=== PATIENT | female | born 1965 | race American Indian/Alaskan Native ===

== ENCOUNTER 2017-04-02 05:21 | Inpatient (IN) | payer OTHER ==
[2017-04-02] MEDS ORDERED: NACL 0.9% 1000 ML 1,000 ML IV ONE (05:25)
[2017-04-02 05:52] LABS: Basophils % (Auto) 0.7 % (0.0-1.8); Eosinophils % (Auto) 1.5 % (0.0-4.3); Mean Corpuscular HGB Conc 30 % (30-34); Platelet Count 444 K/mm3 (140-440); Red Blood Count 2.53 M/mm3 (3.65-5.03)
[2017-04-02] MEDS ORDERED: TORADOL IV ONE (05:52)
[2017-04-02 05:59] LABS: Mean Corpuscular Hemoglobin 20 pg (28-32); Mean Corpuscular Volume 66 fl (79-97); Red Cell Distribution Width 21.7 % (13.2-15.2)
[2017-04-02 06:00] LABS: Hematocrit 16.7 % (30.3-42.9)
[2017-04-02] MEDS ORDERED: NACL 0.9% 500 ML 500 ML IV ONE ×2 (06:01→23:57)
[2017-04-02 06:06] LABS: INR 1.08 (0.87-1.13)
[2017-04-02 06:07] LABS: Partial Thromboplastin Time 23.3 Sec. (24.2-36.6)
[2017-04-02 06:15] LABS: Albumin 3.2 g/dL (3.9-5); Albumin/Globulin Ratio 1.2 %; Alkaline Phosphatase 61 units/L (35-129); Anion Gap 22 mmol/L; Blood Urea Nitrogen 8 mg/dL (7-17); Carbon Dioxide 17 mmol/L (22-30); Chloride 105.3 mmol/L (98-107); Glucose 154 mg/dL (65-100); Sodium 141 mmol/L (137-145); Total Protein 5.9 g/dL (6.3-8.2)
[2017-04-02 06:16] LABS: Alanine Aminotransferase < 5 units/L (7-56)
[2017-04-02] MEDS ORDERED: K-DUR PO ONE (06:28)
--- NOTE | 2017-04-02 06:32 | Emergency Department Report ---
HPI - General Chief Complaint: Vaginal Bleeding Time Seen by Provider: 04/02/17 05:50 - HPI HPI: This is a 51-year-old female presents to the emergency department via EMS with complaint of heavy vaginal bleeding and what appears to be symptomatic anemia. The patient says that she feels very weak. She got into the car with her family to come to the hospital and appeared to pass out. She is currently awake and alert and denies any chest pain, shortness of breath , headache, vision change, slurred speech or any neurological deficits. She has a history of some abnormal menstrual cycles but more recently it has been very heavy bleeding and she has been passing some clots. She says this been going on intermittent for the past 10 days. She has not taken anything for her symptoms prior to presentation. She just went to see a STEAM ENGINEER for the very first time a week or so ago but no treatment or intervention has been started. No recent travel or sick contacts at home. ED Past Medical Hx - Past Medical History Previous Medical History?: No - Surgical History Past Surgical History?: No - Social History Smoking Status: Former Smoker Substance Use Type: None - Medications Home Medications: Home Medications Medication Instructions Recorded Confirmed Last Taken Type Provera PO DAILY 04/02/17 Unknown History ED Review of Systems ROS: Stated complaint: SYNCOPE Other details as noted in HPI Comment: All other systems reviewed and negative Constitutional: denies: chills, fever Eyes: denies: eye pain, eye discharge, vision change ENT: denies: ear pain, throat pain Respiratory: denies: cough, shortness of breath, wheezing Cardiovascular: syncope. denies: chest pain Gastrointestinal: denies: abdominal pain, nausea, diarrhea Genitourinary: other (vaginal bleeding). denies: urgency, dysuria, discharge Musculoskeletal: denies: back pain, joint swelling, arthralgia Skin: denies: rash, lesions Neurological: denies: headache, weakness, paresthesias Physical Exam - Physical Exam Vital Signs: Vital Signs 04/02/17 04/02/17 05:23 05:57 Temperature 98.6 F Pulse Rate 112 H Respiratory 21 19 Rate Blood Pressure 129/77 O2 Sat by Pulse 100 Oximetry Physical Exam: GENERAL: The patient is well-developed well-nourished. Patient appears slightly shaky. HENT: Normocephalic. Atraumatic. Patient has moist mucous membranes. EYES: Extraocular motions are intact. Pupils equal reactive to light bilaterally. Pale conjunctiva. NECK: Supple. Trachea is midline. CHEST/LUNGS: Clear to auscultation. There is no respiratory distress noted. HEART/CARDIOVASCULAR: Regular. There is mild tachycardia. There is no gallop rub or murmur. ABDOMEN: Abdomen is soft, nontender. Patient has normal bowel sounds. There is no abdominal distention. SKIN: There is no rash. There is no edema. There is no diaphoresis. NEURO: The patient is awake, alert, and oriented. The patient is cooperative. The patient has no focal neurologic deficits. The patient has normal speech. Cranial nerves II through XII grossly intact. MUSCULOSKELETAL: There is no tenderness or deformity. There is no limitation range of motion. There is no evidence of acute injury. Radial pulses +2 over 4 bilaterally. Cap refill less than 2 seconds. ED Course Vital Signs 04/02/17 04/02/17 05:23 05:57 Temperature 98.6 F Pulse Rate 112 H Respiratory 21 19 Rate Blood Pressure 129/77 O2 Sat by Pulse 100 Oximetry ED Medical Decision Making - Lab Data Result diagrams: 04/02/17 05:27 04/02/17 05:27 - EKG Data -: EKG Interpreted by Ct EKG shows normal: sinus rhythm, axis, intervals, QRS complexes, ST-T waves Rate: tachycardia (111 bpm) - EKG Data When compared to previous EKG there are: previous EKG unavailable Interpretation: normal EKG (with sinus tach) - Medical Decision Making 51-year-old female presents to the ER with a history of dysfunctional uterine bleeding and some fibroids with a 10 day history of intermittent heavy bleeding with clots. She passed out when she was getting into the car to come to be seen so she came by ambulance. Found to have a hemoglobin of 5 and hypokalemia. Given IV potassium chloride as she felt oral pills would make her sick. 3 units ordered for transfusion. Due to the symptomatic anemia and syncopal episode, patient will be admitted to the hospitalist service with an OB /OPERATIONS LIAISON consult. - Differential Diagnosis symptomatic anemia, fibroids, malignancy Critical Care Time: No Critical care attestation.: If time is entered above; I have spent that time in minutes in the direct care of this critically ill patient, excluding procedure time. ED Disposition Clinical Impression: Symptomatic anemia, Hypokalemia, Menorrhagia with irregular cycle Syncope Qualifiers: Syncope type: unspecified Qualified Code(s): R55 - Syncope and collapse Disposition: OP ADMIT IP TO THIS HOSP Is pt being admited?: Yes Does the pt Need Aspirin: No Condition: Stable Instructions: Syncope (ED) Referrals: PRIMARY CARE, [Primary Care Provider] - 3-5 Days Time of Disposition: 07:34
--- NOTE | 2017-04-02 07:22 | Admit Criteria Form ---
Admission Criteria Documentation: OBSTETRIC AND GYNECOLOGIC DISEASE GRG Clinical Indications for Admission to Inpatient Care (Place 'X' for any and all applicable criteria): Hospital admission is needed for appropriate care of the patient because of 1 or more of the following (1)(2)(3): [ ]I. Hemodynamic instability, as indicated by 1 or more of the following (1)( 2)(3)(4)(5): [ ]a) Vital signs or other findings not as expected for chronic patient condition or baseline [ ]b) Instability indicated by 1 or more of the following: [ ]i) Hypotension [ ]ii) Symptomatic tachycardia unresponsive to treatment (eg, analgesia, fluids, sedation as indicated) [ ]iii) Inadequate perfusion indicated by 1 or more of the following: [ ]A. Lactic acidosis (greater than 2 mmol/ L) [ ]B. New abnormal capillary refill ( greater than 3 seconds) [ ]C. Reduced urine output [ ]D. New altered mental status [ ]iv) Orthostatic vital sign changes unresponsive to treatment (eg, fluids) [ ]v) Multiple IV fluid boluses required to maintain adequate blood pressure or perfusion [ ]vi) IV inotropic or vasopressor medication required to maintain adequate blood pressure or perfusion [ ]II. Obstetric infection requiring hospitalization indicated by 1 or more of the following(13)(14): [ ]a) Chorioamnionitis [ ]b) Endometritis (except mild endometritis) [ ]c) Pelvic abscess [ ]d) Peritonitis [ ]e) Septic pelvic thrombophlebitis [ ]III. Amniotic fluid or pulmonary embolism(4)(5)(6) [ ]IV. Suspected peritonitis or ectopic requiring monitoring beyond scope of 24 hours or observation care(7)(8) [ ]V. compromise requiring hospitalization indicated by ALL of the following(9)(10): [ ]a) compromise indicated by 1 or more of the following(11): [ ]i) Abnormal heart rate monitoring [ ]ii) Abnormal contraction stress test [ ]iii) Abnormal biophysical profile [ ]iv) Abnormal Doppler flow in vessels (ie, Doppler velocimetry) (12) [ ]b) Persistence of compromise indicators during evaluation and observation monitoring [ ]. Ovarian hyperstimulation syndrome requiring hospitalization[A] indicated by ALL of the following(15): [ ]a) Recent ovarian stimulation with gonadotropins, or evidence on ultrasound of spontaneous emergence of large number of ovarian follicles [ ]b) Evidence of severe ovarian hyperstimulation syndrome indicated by 1 or more of the following: [ ]i) Abdominal pain unresponsive to oral therapy [ ]ii) Acute respiratory distress syndrome [ ]iii) Electrolyte imbalance ( eg, hyponatremia, hyperkalemia) [ ]iv) Elevated liver enzymes [ ]v) Evidence of thromboembolism [ ]vi) Hemoconcentration (hematocrit greater than 45 % (0.45)) [ ]vii) Inability to maintain oral intake adequate to prevent hemoconcentration [ ]viii) Marked hypotension from baseline (eg, SBP 20 mmHg below patients usual pressure) [ ]ix) Oliguria or anuria [ ]x) Ovarian torsion [ ]xi) Pleural or pericardial effusion on x-ray or echocardiogram [ ]xii) Rapid increase in serum creatinine to greater than 1.2 mg/dL (106 micromoles/L) or creatinine clearance less than 50 mL/min/1.73m2 (0.84 mL/ sec/1.73m2) [ ]xiii) Ruptured ovarian cyst with hemorrhage [ ]xiv) Severe abdominal pain or peritoneal signs [ ]xv) Tense ascites that cannot be managed with paracentesis in outpatient setting [ ]VII.Pelvic infection requiring hospitalization indicated by 1 or more of the following (16): [ ]a) Outpatient treatment has failed or is not appropriate (eg, inpatient monitoring required) [ ]b) Pelvic abscess [ ]c) Surgical emergency cannot be excluded (eg, rigid abdomen) [ ]d) Vomiting precluding outpatient and observation care management VIII. loss complications requiring inpatient medical treatment indicated by 1 or more of the following (4)(7)(9): [ ]a) Fever [ ]b) Peritonitis [ ]c) Sepsis [ ]d) Severe abdominal pain [ ]IX. or patient requiring monitoring for severe heart failure, pulmonary disease, or other comorbid condition (eg, peripartum cardiomyopathy) (4)(17) [ ]X. patient with rupture of membranes requiring hospitalization indicated by ANY ONE of the following: [ ]a) Chorioamnionitis, cloudy amniotic fluid, or other evidence of infection [ ]b) compromise or other need for monitoring (11) [ ]c) Gestation longer than 23 weeks and ANY ONE of the following: [ ]i) Abnormal (noncephalic) presentation [ ]ii) Inadequate home environment (eg, home too far from hospital, unable to rapidly return to hospital) [ ]d) Temperature greater than 100.4 degrees F (38 degrees C)( oral) [ ]e) Threatened labor requiring monitoring beyond scope (eg, over 24 hours) of observation Care [ ] XI. complications, including severe lacerations, infections, or retained placenta (19) [X ] XII.Uterine bleeding with high-risk features indicated by ANY ONE of the following (4): [ ]a) Active major hemorrhage (eg, hemorrhage) [ ]b) Coagulopathy with active bleeding [ ]c) Gestational trophoblastic disease (eg, molar ) (20 ) [ ]d) (longer than 23 weeks) and ANY ONE of the following: [ ]i) Pain [ ]ii) Placental abruption, known or suspected [ ]iii) Placenta accrete, known or suspected(21) [ ]iv) Placenta previa, known or suspected [ ]v) Vasa previa [X ]e) Severe anemia [ ]XIII. Obstetric or Gynecologic Disease, condition or symptom for which ANY ONE of the following: [ ]a) Emergency and observation care have failed or are not considered appropriate ( Also use General Criteria: Observation Care Criteria as appropriate) [ ]b) Presence of a General Admission Criteria or Pediatric General Admission Criteria The original [facility] [employer] content [facility] by [facility] has been revised. The portions of the content which have been revised are identified through the use of italic text or in bold, and [facility] has neither reviewed nor approved the modified material.All other unmodified content is copyright [facility]. Please see references footnoted in the original [facility] edition 2016 Admission Criteria Met: Yes
--- NOTE | 2017-04-02 07:22 | XRay Report ---
AP CHEST: HISTORY: chest pain AP view of the chest demonstrates a normal mediastinal and cardiac contour with clear lungs and normal bony and soft tissue structures. IMPRESSION: Unremarkable AP chest.
--- NOTE | 2017-04-02 07:47 | History and Physical Report ---
<NEREIDA CLIFFORD - Last Filed: 04/03/17 07:18> History of Present Illness Date of examination: 04/02/17 Date of admission: 04/02/2017 Chief complaint: Vaginal bleeding History of present illness: Patient is 51 years old female with past medical history of fibrosis who presents to the Emergency Department with 17days of worsening heavy vaginal bleed. Just over 17 days ago the patient was at his normal baseline state of health. Now he has had progressive worsening of vaginal bleeding. Patient states has a history of some abnormal menstrual cycles but more recently it has been very heavy bleeding and with passing some big clots. Patient reporters she has been going on intermittent since 03/16/2017. Patient reported feeling fatigue and weak. Also patient stated she got into the car with her family to come to the hospital and felt dizzy and appeared to pass out. He daughter called 911 and EMS brought her to the Emergency department. She denies nausea, vomiting and shortness of breath. He denies fever, wt loss, SOB, dizziness, hematemesis, diarrhea, constipation, or hematochezia. No hx of liver disease. No NSAID use. No ETOH abuse or smoking. Past History Past Medical History: other (Abnormal uterine bleeding) Past Surgical History: No surgical history Social history: no significant social history. denies: smoking, alcohol abuse Family history: hypertension Medications and Allergies Allergies Allergy/AdvReac Type Severity Reaction Status Date / Time No Known Allergies Allergy Unverified 04/02/17 05:23 Home Medications Medication Instructions Recorded Confirmed Last Taken Type Provera 10 mg PO DAILY 04/02/17 04/02/17 Unknown History Active Meds: Active Medications Potassium Chloride (Kcl 10meq/100ml) 10 meq in 100 mls @ 100 mls/hr IV Q1H FRANDY Stop: 04/02/17 11:59 Review of Systems Constitutional: fatigue, weakness, lethargy, no weight loss, no weight gain, no fever Ears, nose, mouth and throat: no ear pain, no ear discharge, no tinnitis, no decreased hearing Breasts: no change in shape, no swelling, no mass Cardiovascular: no orthopnea, no palpitations, no rapid/irregular heart beat, no edema Respiratory: no cough with sputum, no excessive sputum, no hemoptysis, no shortness of breath Gastrointestinal: nausea, no vomiting, no diarrhea, no constipation Genitourinary Female: menorrhagia, abnormal vaginal bleeding, no dysmenorrhea, no pelvic pain, no flank pain, no dysuria Menstruation: no currently menstrual, no premenarcheal, no post hysterectomy, no ammenorrhea Musculoskeletal: no neck stiffness, no neck pain, no arm numbness/tingling, no low back pain Integumentary: no rash, no pruritis, no redness, no sores Neurological: no head injury, no transient paralysis, no paralysis, no weakness Psychiatric: no anxiety, no memory loss, no change in sleep habits, no sleep disturbances, no insomnia, no hypersomnia Endocrine: no cold intolerance, no heat intolerance, no polyphagia, no excessive thirst, no polydipsia Hematologic/Lymphatic: no easy bruising, no easy bleeding Allergic/Immunologic: no urticaria, no allergic rhinitis Exam - Constitutional Vitals: Temp Pulse Resp BP Pulse Ox 98.6 F 110 H 19 124/82 100 04/02/17 05:23 04/02/17 06:29 04/02/17 06:29 04/02/17 06:29 04/02/17 06:29 General appearance: Present: no acute distress - EENT Eyes: Present: PERRL ENT: hearing intact - Neck Neck: Present: supple - Respiratory Respiratory effort: normal Respiratory: bilateral: CTA - Cardiovascular Rhythm: regular Heart Sounds: Present: S1 & S2 - Extremities Extremities: no ischemia Peripheral Pulses: within normal limits - Abdominal General gastrointestinal: Present: soft, non-tender Female genitourinary: Present: other (heavy menstrual bleeding) - Rectal Rectal Exam: deferred - Integumentary Integumentary: Present: clear, warm, dry - Musculoskeletal Musculoskeletal: strength equal bilaterally - Psychiatric Psychiatric: appropriate mood/affect - Neurologic Neurologic: CNII-XII intact - Allied Health Allied health notes reviewed: nursing Results - Labs CBC & Chem 7: 04/03/17 05:28 04/03/17 05:28 Labs: Laboratory Last Values WBC 13.0 K/mm3 (4.5-11.0) H 04/02/17 05:27 RBC 2.53 M/mm3 (3.65-5.03) L 04/02/17 05:27 Hgb 5.0 gm/dl (10.1-14.3) L* 04/02/17 05:27 Hct 16.7 % (30.3-42.9) L* 04/02/17 05:27 MCV 66 fl (79-97) L 04/02/17 05:27 MCH 20 pg (28-32) L 04/02/17 05:27 MCHC 30 % (30-34) 04/02/17 05:27 RDW 21.7 % (13.2-15.2) H 04/02/17 05:27 Plt Count 444 K/mm3 (140-440) H 04/02/17 05:27 Lymph % (Auto) 23.6 % (13.4-35.0) 04/02/17 05:27 [place] % (Auto) 3.7 % (0.0-7.3) 04/02/17 05:27 Eos % (Auto) 1.5 % (0.0-4.3) 04/02/17 05:27 Baso % (Auto) 0.7 % (0.0-1.8) 04/02/17 05:27 Lymph # 3.1 K/mm3 (1.2-5.4) 04/02/17 05:27 [place] # 0.5 K/mm3 (0.0-0.8) 04/02/17 05:27 Eos # 0.2 K/mm3 (0.0-0.4) 04/02/17 05:27 Baso # 0.1 K/mm3 (0.0-0.1) 04/02/17 05:27 Seg Neutrophils % 70.5 % (40.0-70.0) H 04/02/17 05:27 Seg Neutrophils # 9.2 K/mm3 (1.8-7.7) H 04/02/17 05:27 PT 14.6 Sec. (12.2-14.9) 04/02/17 05:27 INR 1.08 (0.87-1.13) 04/02/17 05:27 APTT 23.3 Sec. (24.2-36.6) L 04/02/17 05:27 D-Dimer 285.55 ng/mlDDU (0-234) H 04/02/17 05:27 Sodium 141 mmol/L (137-145) 04/02/17 05:27 Potassium 3.0 mmol/L (3.6-5.0) L 04/02/17 05:27 Chloride 105.3 mmol/L (98-107) 04/02/17 05:27 Carbon Dioxide 17 mmol/L (22-30) L 04/02/17 05:27 Anion Gap 22 mmol/L 04/02/17 05:27 BUN 8 mg/dL (7-17) 04/02/17 05:27 Creatinine 0.5 mg/dL (0.7-1.2) L 04/02/17 05:27 Estimated GFR > 60 ml/min 04/02/17 05:27 BUN/Creatinine Ratio 16.00 % 04/02/17 05:27 Glucose 154 mg/dL (65-100) H 04/02/17 05:27 Calcium 8.0 mg/dL (8.4-10.2) L 04/02/17 05:27 Total Bilirubin 0.20 mg/dL (0.1-1.2) 04/02/17 05:27 AST 9 units/L (5-40) 04/02/17 05:27 ALT < 5 units/L (7-56) L 04/02/17 05:27 Alkaline Phosphatase 61 units/L (35-129) 04/02/17 05:27 Troponin T < 0.010 ng/mL (0.00-0.029) 04/02/17 05:27 Total Protein 5.9 g/dL (6.3-8.2) L 04/02/17 05:27 Albumin 3.2 g/dL (3.9-5) L 04/02/17 05:27 Albumin/Globulin Ratio 1.2 % 04/02/17 05:27 Blood Type O POSITIVE 04/02/17 05:27 Crossmatch See Detail 04/02/17 05:27 - Imaging and Cardiology CT scan - pelvis: image reviewed (Enlarged uterus with a central fibroid along the endometrium and right ovarian cyst.) Assessment and Plan Assessment and plan: Acute Blood loss Anemia Most likely due to menorrhagia Patient has significant drop of H&H , ordered stat transfusion of 3 units of PRBC STAT Type and screen for transfusion Treat underlying cause and restore normal levels of red blood cells, hemoglobin to safe levels. IV Fluid Closely monitor H&H Menorrhagia Most likely due to uterine fibroids Pelvic and transvaginal ultrasound shows enlarged uterus with a central fibroid along the endometrium and right ovarian cyst. OBGYN consulted Closely monitor H&H Fibroid uterus OBGYN consulted for possible hysterectomy Hypokalemia Replaced Closely monitor electrolytes DVT prophylaxis Just SCD for now because of active bleeding. Advance Directives: Yes VTE prophylaxis?: Chemical Contraindication Mechanical VTE Prophylaxis: Treatment Not Indicated Plan of care discussed with patient/family: Yes <LOVE ANDREA Laz - Last Filed: 04/03/17 08:41> History of Present Illness Date of admission: 04/02/17 07:56 Medications and Allergies Active Meds: Active Medications Acetaminophen (Tylenol) 650 mg PO Q4H PRN PRN Reason: Pain MILD(1-3)/Fever >100.5/SHEPPARD Bisacodyl (Dulcolax) 10 mg [place] QDAY PRN PRN Reason: Constipation unrelieved by MOM Sodium Chloride (Nacl 0.9% 1000 Ml) 1,000 mls @ 75 mls/hr IV DIRECT FRANDY Last Admin: 04/02/17 13:37 Dose: 75 mls/hr Ketorolac Tromethamine (Toradol) 30 mg IV Q6H FRANDY Stop: 04/07/17 08:59 Last Admin: 04/03/17 05:52 Dose: Not Given Medroxyprogesterone Acetate (Provera) 10 mg PO QDAY FRANDY Ondansetron HCl (Zofran) 4 mg IM Q4H PRN PRN Reason: Nausea And Vomiting Potassium Chloride (K-Dur) 40 meq PO Q4H FRANDY Stop: 04/03/17 14:01 Exam - Constitutional Vitals: Temp Pulse Resp BP Pulse Ox 98.6 F 90 18 138/74 100 04/03/17 06:00 04/03/17 06:00 04/03/17 06:00 04/03/17 06:00 04/03/17 06:00 Results - Labs CBC & Chem 7: 04/03/17 05:28 04/03/17 05:28 Labs: Laboratory Last Values WBC 8.6 K/mm3 (4.5-11.0) 04/03/17 05:28 RBC 2.84 M/mm3 (3.65-5.03) L 04/03/17 05:28 Hgb 6.6 gm/dl (10.1-14.3) L 04/03/17 05:28 Hct 20.6 % (30.3-42.9) L 04/03/17 05:28 MCV 72 fl (79-97) L 04/03/17 05:28 MCH 23 pg (28-32) L 04/03/17 05:28 MCHC 32 % (30-34) 04/03/17 05:28 RDW 25.5 % (13.2-15.2) H 04/03/17 05:28 Plt Count 333 K/mm3 (140-440) 04/03/17 05:28 Lymph % (Auto) 23.6 % (13.4-35.0) 04/02/17 05:27 [place] % (Auto) 3.7 % (0.0-7.3) 04/02/17 05:27 Eos % (Auto) 1.5 % (0.0-4.3) 04/02/17 05:27 Baso % (Auto) 0.7 % (0.0-1.8) 04/02/17 05:27 Lymph # 3.1 K/mm3 (1.2-5.4) 04/02/17 05:27 [place] # 0.5 K/mm3 (0.0-0.8) 04/02/17 05:27 Eos # 0.2 K/mm3 (0.0-0.4) 04/02/17 05:27 Baso # 0.1 K/mm3 (0.0-0.1) 04/02/17 05:27 Add Manual Diff Complete 04/03/17 05:28 Total Counted 100 04/03/17 05:28 Seg Neutrophils % 70.5 % (40.0-70.0) H 04/02/17 05:27 Seg Neuts % (Manual) 78.0 % (40.0-70.0) H 04/03/17 05:28 Band Neutrophils % 8.0 % 04/03/17 05:28 Lymphocytes % (Manual) 11.0 % (13.4-35.0) L 04/03/17 05:28 Reactive Lymphs % (Man) 0 % 04/03/17 05:28 Monocytes % (Manual) 3.0 % (0.0-7.3) 04/03/17 05:28 Eosinophils % (Manual) 0 % (0.0-4.3) 04/03/17 05:28 Basophils % (Manual) 0 % (0.0-1.8) 04/03/17 05:28 Metamyelocytes % 0 % 04/03/17 05:28 Myelocytes % 0 % 04/03/17 05:28 Promyelocytes % 0 % 04/03/17 05:28 Blast Cells % 0 % 04/03/17 05:28 Nucleated RBC % Not Reportable 04/03/17 05:28 Seg Neutrophils # 9.2 K/mm3 (1.8-7.7) H 04/02/17 05:27 Seg Neutrophils # Man 6.7 K/mm3 (1.8-7.7) 04/03/17 05:28 Band Neutrophils # 0.7 K/mm3 04/03/17 05:28 Lymphocytes # (Manual) 0.9 K/mm3 (1.2-5.4) L 04/03/17 05:28 Abs React Lymphs (Man) 0.0 K/mm3 04/03/17 05:28 Monocytes # (Manual) 0.3 K/mm3 (0.0-0.8) 04/03/17 05:28 Eosinophils # (Manual) 0.0 K/mm3 (0.0-0.4) 04/03/17 05:28 Basophils # (Manual) 0.0 K/mm3 (0.0-0.1) 04/03/17 05:28 Metamyelocytes # 0.0 K/mm3 04/03/17 05:28 Myelocytes # 0.0 K/mm3 04/03/17 05:28 Promyelocytes # 0.0 K/mm3 04/03/17 05:28 Blast Cells # 0.0 K/mm3 04/03/17 05:28 WBC Morphology Not Reportable 04/03/17 05:28 Hypersegmented Neuts Not Reportable 04/03/17 05:28 Hyposegmented Neuts Not Reportable 04/03/17 05:28 Hypogranular Neuts Not Reportable 04/03/17 05:28 Smudge Cells Not Reportable 04/03/17 05:28 Toxic Granulation Not Reportable 04/03/17 05:28 Toxic Vacuolation Not Reportable 04/03/17 05:28 Dohle Bodies Not Reportable 04/03/17 05:28 Pelger-Huet Anomaly Not Reportable 04/03/17 05:28 Milana Rods Not Reportable 04/03/17 05:28 Platelet Estimate Appears normal 04/03/17 05:28 Clumped Platelets Not Reportable 04/03/17 05:28 Plt Clumps, EDTA Not Reportable 04/03/17 05:28 Large Platelets Not Reportable 04/03/17 05:28 Giant Platelets Not Reportable 04/03/17 05:28 Platelet Satelliting Not Reportable 04/03/17 05:28 Plt Morphology Comment Not Reportable 04/03/17 05:28 RBC Morphology Not Reportable 04/03/17 05:28 Dimorphic RBCs Not Reportable 04/03/17 05:28 Polychromasia Not Reportable 04/03/17 05:28 Hypochromasia 1+ 04/03/17 05:28 Poikilocytosis Not Reportable 04/03/17 05:28 Anisocytosis 2+ 04/03/17 05:28 Microcytosis Not Reportable 04/03/17 05:28 Macrocytosis Not Reportable 04/03/17 05:28 Spherocytes Not Reportable 04/03/17 05:28 Pappenheimer Bodies Not Reportable 04/03/17 05:28 Sickle Cells Not Reportable 04/03/17 05:28 Target Cells Not Reportable 04/03/17 05:28 Tear Drop Cells Not Reportable 04/03/17 05:28 Ovalocytes Few 04/03/17 05:28 Helmet Cells Not Reportable 04/03/17 05:28 [place] Bodies Not Reportable 04/03/17 05:28 [place] Rings Not Reportable 04/03/17 05:28 Jaime Cells Not Reportable 04/03/17 05:28 Bite Cells Not Reportable 04/03/17 05:28 Crenated Cell Not Reportable 04/03/17 05:28 Elliptocytes 1+ 04/03/17 05:28 Acanthocytes (Spur) Not Reportable 04/03/17 05:28 Rouleaux Not Reportable 04/03/17 05:28 Hemoglobin C Crystals Not Reportable 04/03/17 05:28 Schistocytes Not Reportable 04/03/17 05:28 Malaria parasites Not Reportable 04/03/17 05:28 Chris Bodies Not Reportable 04/03/17 05:28 Hem Pathologist Commnt No 04/03/17 05:28 PT 14.6 Sec. (12.2-14.9) 04/02/17 05:27 INR 1.08 (0.87-1.13) 04/02/17 05:27 APTT 23.3 Sec. (24.2-36.6) L 04/02/17 05:27 D-Dimer 285.55 ng/mlDDU (0-234) H 04/02/17 05:27 Sodium 142 mmol/L (137-145) 04/03/17 05:28 Potassium 3.4 mmol/L (3.6-5.0) L 04/03/17 05:28 Chloride 110.5 mmol/L (98-107) H 04/03/17 05:28 Carbon Dioxide 18 mmol/L (22-30) L 04/03/17 05:28 Anion Gap 17 mmol/L 04/03/17 05:28 BUN 7 mg/dL (7-17) 04/03/17 05:28 Creatinine 0.4 mg/dL (0.7-1.2) L 04/03/17 05:28 Estimated GFR > 60 ml/min 04/03/17 05:28 BUN/Creatinine Ratio 17.50 % 04/03/17 05:28 Glucose 92 mg/dL (65-100) 04/03/17 05:28 Calcium 7.5 mg/dL (8.4-10.2) L 04/03/17 05:28 Magnesium 1.90 mg/dL (1.7-2.3) 04/03/17 05:28 Total Bilirubin 0.20 mg/dL (0.1-1.2) 04/02/17 05:27 AST 9 units/L (5-40) 04/02/17 05:27 ALT < 5 units/L (7-56) L 04/02/17 05:27 Alkaline Phosphatase 61 units/L (35-129) 04/02/17 05:27 Troponin T < 0.010 ng/mL (0.00-0.029) 04/02/17 09:35 Total Protein 5.9 g/dL (6.3-8.2) L 04/02/17 05:27 Albumin 3.2 g/dL (3.9-5) L 04/02/17 05:27 Albumin/Globulin Ratio 1.2 % 04/02/17 05:27 Blood Type O POSITIVE 04/02/17 05:27 Antibody Screen Negative 04/02/17 05:27 Crossmatch See Detail 04/02/17 05:27 Assessment and Plan Assessment and plan: I saw and evaluated the patient. I agree with the findings and the plan of care as documented in the Nurse Practitioner's~note, with the following corrections and additions. Patient with severe abnormal uterine bleeding due to fibroids. Transfuse PRBC, replace Potassium.
[2017-04-02] MEDS ORDERED: DULCOLAX PR PRN (07:56)
[2017-04-02] MEDS ORDERED: TYLENOL PO PRN (07:56)
[2017-04-02] MEDS ORDERED: NACL 0.9% 1000 ML 1,000 ML IV SCH (08:00)
[2017-04-02] MEDS ORDERED: NACL ONE (08:37)
[2017-04-02] MEDS ORDERED: TORADOL ONE (08:41)
[2017-04-02] MEDS: TORADOL IV SCH ×2 (08:44→19:01)
[2017-04-02] MEDS ORDERED: ZOFRAN IM PRN (08:51)
--- NOTE | 2017-04-02 09:24 | Cat Scan Report ---
CTA CHEST INDICATION: Elevated d-dimer. COMPARISON: None similar. FINDINGS: Chest CTA performed following intravenous administration of 100 cc of Omnipaque 350. Rotational MIP's also obtained. Top normal heart size. No effusions. No aortic aneurysm, dissection or suspicious pulmonary arterial filling defects. No size significant adenopathy. Normal airway. Unremarkable thyroid. Clear lungs. Nonspecific distal esophageal wall prominence/thickening, not excluded for gastroesophageal reflux and/or hiatal hernia, amongst others. Right hemidiaphragm mildly elevated. At least 2 hepatic hypodensities/cysts superiorly measure up to approximately 1 cm. A 0.5 cm faintly calcified gallstone also noted dependently. Multilevel thoracic spondylosis. CONCLUSION: No CT evidence of pulmonary embolism with various incidental findings, as above. Thank you for the opportunity to participate in this patient's care.
[2017-04-02] MEDS ORDERED: LOVENOX SUB-Q SCH (10:00)
--- NOTE | 2017-04-02 11:02 | Consultation ---
History of Present Illness Consult date: 04/02/17 Requesting physician: NEREIDA CLIFFORD Reason for consult: menorrhagia History of present illness: Pt is a 51-year-old female LMP 03/16/17 who presented to the emergency department via EMS with complaints of heavy vaginal bleeding and what appeared to be symptomatic anemia. The patient stated that she was feeling weak, and she got into the car with her family to come to the hospital and appeared to pass out. She is currently awake and alert and denies any chest pain, shortness of breath, headache, vision change, slurred speech or any neurological deficits. She has a history of some abnormal menstrual cycles, but more recently it has been very heavy bleeding and she has been passing some clots. She says this been going on intermittently for the past 10 days. She has not taken anything for her symptoms prior to presentation, and just went to see an [employer] OPERATOR (Dr Cerna), for the very first time a week or so ago but no treatment or intervention has been started. I have been consulted to evaluate her bleeding. 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 Family/Genetic History: cancer Social history: no significant social history, Medications and Allergies Allergies Allergy/AdvReac Type Severity Reaction Status Date / Time No Known Allergies Allergy Unverified 04/02/17 05:23 Home Medications Medication Instructions Recorded Confirmed Last Taken Type Provera 10 mg PO DAILY 04/02/17 04/02/17 Unknown History Active Meds: Active Medications Acetaminophen (Tylenol) 650 mg PO Q4H PRN PRN Reason: Pain MILD(1-3)/Fever >100.5/SHEPPARD Bisacodyl (Dulcolax) 10 mg [place] QDAY PRN PRN Reason: Constipation unrelieved by MOM Enoxaparin Sodium (Lovenox) 40 mg SUB-Q QDAY FRANDY Potassium Chloride (Kcl 10meq/100ml) 10 meq in 100 mls @ 100 mls/hr IV Q1H FRANDY Stop: 04/02/17 11:59 Sodium Chloride (Nacl 0.9% 1000 Ml) 1,000 mls @ 75 mls/hr IV DIRECT FRANDY Ketorolac Tromethamine (Toradol) 30 mg IV Q6H FRANDY Stop: 04/07/17 08:59 Last Admin: 04/02/17 08:44 Dose: 30 mg Ondansetron HCl (Zofran) 4 mg IM Q4H PRN PRN Reason: Nausea And Vomiting Review of Systems All systems: negative - Vital Signs Vital signs: Vital Signs Temp Pulse Resp BP Pulse Ox 98.6 F 112 H 21 129/77 100 04/02/17 05:23 04/02/17 05:23 04/02/17 05:23 04/02/17 05:23 04/02/17 05:23 Temp Pulse Resp BP Pulse Ox 98.1 F 114 H 20 133/70 100 04/02/17 09:25 04/02/17 09:25 04/02/17 09:25 04/02/17 09:25 04/02/17 09:25 - Physical Exam Breasts: Positive: deferred Cardiovascular: Regular rate Lungs: Positive: Clear to auscultation Abdomen: Positive: normal appearance Uterus: Positive: enlarged Extremities: Positive: normal Results Result Diagrams: 04/02/17 05:27 04/02/17 05:27 All other labs normal. 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 (2) Menorrhagia with irregular cycle Onset Date: 04/02/17 Current Visit: Yes Status: Chronic (3) Symptomatic anemia Onset Date: 04/02/17 Current Visit: Yes Status: Acute
--- NOTE | 2017-04-02 12:02 | Ultrasound Report ---
ULTRASOUND PELVIS COMPLETE - TRANSABDOMINAL AND TRANSVAGINAL: INDICATION: Abnormal uterine bleeding. COMPARISON: None similar. FINDINGS: Transabdominal and transvaginal pelvic sonography performed in this patient with irregular cycles demonstrates an anteverted, 14.5 x 6.9 x 8.9 cm prominent/enlarged uterus with an approximately 5.1 x 4.3 x 4.1 cm central fibroid displacing the endometrial stripe and limiting its assessment. No significant free fluid. Right ovary is 4.4 x 4 x 3.8 cm with a 2.8 cm intrinsic cyst, endovaginal image 12. Left ovary not visualized. CONCLUSION: 1. Enlarged uterus with a central fibroid along the endometrium, as described. 2. Right ovarian cyst. Left ovary not visualized. Thank you for the opportunity to participate in this patient's care.
[2017-04-02] MEDS: KCL 10MEQ/100ML 10 MEQ/100 ML BAG IV SCH ×4 (18:52→23:31)
[2017-04-02 20:47] LABS: Mean Corpuscular HGB Conc 32 % (30-34); Mean Corpuscular Volume 71 fl (79-97); Platelet Count 360 K/mm3 (140-440); Red Blood Count 2.59 M/mm3 (3.65-5.03); White Blood Count 9.4 K/mm3 (4.5-11.0)
[2017-04-02 20:48] LABS: Hematocrit 18.4 % (30.3-42.9); Hemoglobin 5.8 gm/dl (10.1-14.3); Mean Corpuscular Hemoglobin 22 pg (28-32); Red Cell Distribution Width 24.5 % (13.2-15.2)
[2017-04-02 21:10] LABS: Anion Gap 15 mmol/L; Blood Urea Nitrogen 7 mg/dL (7-17); Calcium 7.9 mg/dL (8.4-10.2); Carbon Dioxide 21 mmol/L (22-30); Chloride 110.1 mmol/L (98-107); Glucose 98 mg/dL (65-100); Potassium 3.5 mmol/L (3.6-5.0); Sodium 143 mmol/L (137-145)
[2017-04-03] MEDS: TORADOL IV SCH ×5 (04:21→20:47)
[2017-04-03 06:21] LABS: Hematocrit 20.6 % (30.3-42.9); Hemoglobin 6.6 gm/dl (10.1-14.3); Mean Corpuscular HGB Conc 32 % (30-34); Mean Corpuscular Volume 72 fl (79-97); Platelet Count 333 K/mm3 (140-440); Red Blood Count 2.84 M/mm3 (3.65-5.03); White Blood Count 8.6 K/mm3 (4.5-11.0)
[2017-04-03 06:34] LABS: Anion Gap 17 mmol/L; Blood Urea Nitrogen 7 mg/dL (7-17); Calcium 7.5 mg/dL (8.4-10.2); Carbon Dioxide 18 mmol/L (22-30); Chloride 110.5 mmol/L (98-107); Glucose 92 mg/dL (65-100); Mean Corpuscular Hemoglobin 23 pg (28-32); Potassium 3.4 mmol/L (3.6-5.0); Red Cell Distribution Width 25.5 % (13.2-15.2); Sodium 142 mmol/L (137-145)
[2017-04-03 07:36] LABS: Basophils % (Manual) 0 % (0.0-1.8); Blastocytes % (Manual) 0 %; Eosinophils % (Manual) 0 % (0.0-4.3)
[2017-04-03 07:37] LABS: Anisocytosis 2+; Elliptocytes 1+; Hypochromasia 1+
[2017-04-03 07:38] LABS: Diff Status Complete; Ovalocytes Few
[2017-04-03] MEDS: K-DUR PO SCH ×2 (09:50→14:27)
[2017-04-03] MEDS: PROVERA PO SCH (14:27)
--- NOTE | 2017-04-03 16:32 | Progress Note ---
Assessment and Plan Assessment and plan: Acute Blood loss Anemia Due to menorrhagia from uterine fibroids Patient has significant drop of H&H. Hemoglobin 6.6 this morning from 5.0 after 3 Units PRBC. Transfuse 2 units PRBC more. Recheck hemoglobin 7 PM tonight. , ordered stat transfusion of 3 units of PRBC Closely monitor H&H Menorrhagia Due to uterine fibroids Pelvic and transvaginal ultrasound shows enlarged uterus with a central fibroid along the endometrium and right ovarian cyst. OBGYN following Closely monitor H&H Fibroid uterus OBGYN consulted for possible hysterectomy Hypokalemia Potassium level still low even after replacement. Replace and recheck again in the morning Closely monitor electrolytes DVT prophylaxis Just SCD for now because of active bleeding. History Interval history: With severe menorrhagia due to uterine fibroids, Had more severe uterine bleeding today, Generalized weakness Hospitalist Physical - Physical exam Narrative exam: Gen appearance: Not in acute distress,obese HEENT: normocephalic, atraumatic Neck: supple, no JVD, ANA Lungs: Clear to auscultation bilaterally, no crackles or wheezes Heart :S1 and S2 regular, no murmurs, rubs or gallop Abdomen: Soft, Non tender, non distended, bowel sounds present Extremities :no edema, no clubbing or cyanosis Neuro: AAO x 3, no focal neurological signs Psych:normal mood - Constitutional Vitals: Temp Pulse Resp BP Pulse Ox 98.4 F 86 16 135/85 0 L 04/03/17 15:02 04/03/17 15:02 04/03/17 15:02 04/03/17 15:02 04/03/17 15:02 General appearance: Present: no acute distress Results - Labs CBC & Chem 7: 04/03/17 05:28 04/03/17 05:28 Labs: Laboratory Last Values WBC 8.6 K/mm3 (4.5-11.0) 04/03/17 05:28 RBC 2.84 M/mm3 (3.65-5.03) L 04/03/17 05:28 Hgb 6.6 gm/dl (10.1-14.3) L 04/03/17 05:28 Hct 20.6 % (30.3-42.9) L 04/03/17 05:28 MCV 72 fl (79-97) L 04/03/17 05:28 MCH 23 pg (28-32) L 04/03/17 05:28 MCHC 32 % (30-34) 04/03/17 05:28 RDW 25.5 % (13.2-15.2) H 04/03/17 05:28 Plt Count 333 K/mm3 (140-440) 04/03/17 05:28 Lymph % (Auto) 23.6 % (13.4-35.0) 04/02/17 05:27 York % (Auto) 3.7 % (0.0-7.3) 04/02/17 05:27 Eos % (Auto) 1.5 % (0.0-4.3) 04/02/17 05:27 Baso % (Auto) 0.7 % (0.0-1.8) 04/02/17 05:27 Lymph # 3.1 K/mm3 (1.2-5.4) 04/02/17 05:27 York # 0.5 K/mm3 (0.0-0.8) 04/02/17 05:27 Eos # 0.2 K/mm3 (0.0-0.4) 04/02/17 05:27 Baso # 0.1 K/mm3 (0.0-0.1) 04/02/17 05:27 Add Manual Diff Complete 04/03/17 05:28 Total Counted 100 04/03/17 05:28 Seg Neutrophils % 70.5 % (40.0-70.0) H 04/02/17 05:27 Seg Neuts % (Manual) 78.0 % (40.0-70.0) H 04/03/17 05:28 Band Neutrophils % 8.0 % 04/03/17 05:28 Lymphocytes % (Manual) 11.0 % (13.4-35.0) L 04/03/17 05:28 Reactive Lymphs % (Man) 0 % 04/03/17 05:28 Monocytes % (Manual) 3.0 % (0.0-7.3) 04/03/17 05:28 Eosinophils % (Manual) 0 % (0.0-4.3) 04/03/17 05:28 Basophils % (Manual) 0 % (0.0-1.8) 04/03/17 05:28 Metamyelocytes % 0 % 04/03/17 05:28 Myelocytes % 0 % 04/03/17 05:28 Promyelocytes % 0 % 04/03/17 05:28 Blast Cells % 0 % 04/03/17 05:28 Nucleated RBC % Not Reportable 04/03/17 05:28 Seg Neutrophils # 9.2 K/mm3 (1.8-7.7) H 04/02/17 05:27 Seg Neutrophils # Man 6.7 K/mm3 (1.8-7.7) 04/03/17 05:28 Band Neutrophils # 0.7 K/mm3 04/03/17 05:28 Lymphocytes # (Manual) 0.9 K/mm3 (1.2-5.4) L 04/03/17 05:28 Abs React Lymphs (Man) 0.0 K/mm3 04/03/17 05:28 Monocytes # (Manual) 0.3 K/mm3 (0.0-0.8) 04/03/17 05:28 Eosinophils # (Manual) 0.0 K/mm3 (0.0-0.4) 04/03/17 05:28 Basophils # (Manual) 0.0 K/mm3 (0.0-0.1) 04/03/17 05:28 Metamyelocytes # 0.0 K/mm3 04/03/17 05:28 Myelocytes # 0.0 K/mm3 04/03/17 05:28 Promyelocytes # 0.0 K/mm3 04/03/17 05:28 Blast Cells # 0.0 K/mm3 04/03/17 05:28 WBC Morphology Not Reportable 04/03/17 05:28 Hypersegmented Neuts Not Reportable 04/03/17 05:28 Hyposegmented Neuts Not Reportable 04/03/17 05:28 Hypogranular Neuts Not Reportable 04/03/17 05:28 Smudge Cells Not Reportable 04/03/17 05:28 Toxic Granulation Not Reportable 04/03/17 05:28 Toxic Vacuolation Not Reportable 04/03/17 05:28 Dohle Bodies Not Reportable 04/03/17 05:28 Pelger-Huet Anomaly Not Reportable 04/03/17 05:28 Milana Rods Not Reportable 04/03/17 05:28 Platelet Estimate Appears normal 04/03/17 05:28 Clumped Platelets Not Reportable 04/03/17 05:28 Plt Clumps, EDTA Not Reportable 04/03/17 05:28 Large Platelets Not Reportable 04/03/17 05:28 Giant Platelets Not Reportable 04/03/17 05:28 Platelet Satelliting Not Reportable 04/03/17 05:28 Plt Morphology Comment Not Reportable 04/03/17 05:28 RBC Morphology Not Reportable 04/03/17 05:28 Dimorphic RBCs Not Reportable 04/03/17 05:28 Polychromasia Not Reportable 04/03/17 05:28 Hypochromasia 1+ 04/03/17 05:28 Poikilocytosis Not Reportable 04/03/17 05:28 Anisocytosis 2+ 04/03/17 05:28 Microcytosis Not Reportable 04/03/17 05:28 Macrocytosis Not Reportable 04/03/17 05:28 Spherocytes Not Reportable 04/03/17 05:28 Pappenheimer Bodies Not Reportable 04/03/17 05:28 Sickle Cells Not Reportable 04/03/17 05:28 Target Cells Not Reportable 04/03/17 05:28 Tear Drop Cells Not Reportable 04/03/17 05:28 Ovalocytes Few 04/03/17 05:28 Helmet Cells Not Reportable 04/03/17 05:28 Singh-Harrod Bodies Not Reportable 04/03/17 05:28 Adamant Rings Not Reportable 04/03/17 05:28 Jaime Cells Not Reportable 04/03/17 05:28 Bite Cells Not Reportable 04/03/17 05:28 Crenated Cell Not Reportable 04/03/17 05:28 Elliptocytes 1+ 04/03/17 05:28 Acanthocytes (Spur) Not Reportable 04/03/17 05:28 Rouleaux Not Reportable 04/03/17 05:28 Hemoglobin C Crystals Not Reportable 04/03/17 05:28 Schistocytes Not Reportable 04/03/17 05:28 Malaria parasites Not Reportable 04/03/17 05:28 Chris Bodies Not Reportable 04/03/17 05:28 Hem Pathologist Commnt No 04/03/17 05:28 PT 14.6 Sec. (12.2-14.9) 04/02/17 05:27 INR 1.08 (0.87-1.13) 04/02/17 05:27 APTT 23.3 Sec. (24.2-36.6) L 04/02/17 05:27 D-Dimer 285.55 ng/mlDDU (0-234) H 04/02/17 05:27 Sodium 142 mmol/L (137-145) 04/03/17 05:28 Potassium 3.4 mmol/L (3.6-5.0) L 04/03/17 05:28 Chloride 110.5 mmol/L (98-107) H 04/03/17 05:28 Carbon Dioxide 18 mmol/L (22-30) L 04/03/17 05:28 Anion Gap 17 mmol/L 04/03/17 05:28 BUN 7 mg/dL (7-17) 04/03/17 05:28 Creatinine 0.4 mg/dL (0.7-1.2) L 04/03/17 05:28 Estimated GFR > 60 ml/min 04/03/17 05:28 BUN/Creatinine Ratio 17.50 % 04/03/17 05:28 Glucose 92 mg/dL (65-100) 04/03/17 05:28 Calcium 7.5 mg/dL (8.4-10.2) L 04/03/17 05:28 Magnesium 1.90 mg/dL (1.7-2.3) 04/03/17 05:28 Total Bilirubin 0.20 mg/dL (0.1-1.2) 04/02/17 05:27 AST 9 units/L (5-40) 04/02/17 05:27 ALT < 5 units/L (7-56) L 04/02/17 05:27 Alkaline Phosphatase 61 units/L (35-129) 04/02/17 05:27 Troponin T < 0.010 ng/mL (0.00-0.029) 04/02/17 09:35 Total Protein 5.9 g/dL (6.3-8.2) L 04/02/17 05:27 Albumin 3.2 g/dL (3.9-5) L 04/02/17 05:27 Albumin/Globulin Ratio 1.2 % 04/02/17 05:27 Blood Type O POSITIVE 08/21/17 05:27 Antibody Screen Negative 04/02/17 05:27 Crossmatch See Detail 04/02/17 05:27
--- NOTE | 2017-04-03 18:43 | Progress Note ---
Assessment and Plan - Patient Problems (1) Fibroid uterus Onset Date: 04/02/17 Current Visit: Yes Status: Chronic Qualifiers: Uterine leiomyoma location: submucous Qualified Code(s): D25.0 - Submucous leiomyoma of uterus Plan to address problem: A: Symptomatic anemia - most likely due to menorrhagia Menorrhagia - most likely due to uterine fibroids Fibroid uterus Hypokalemia P: Discussed treatment options with pt. Will proceed with a D&C tomorrow (2) Menorrhagia with irregular cycle Onset Date: 04/02/17 Current Visit: Yes Status: Chronic (3) Symptomatic anemia Onset Date: 04/02/17 Current Visit: Yes Status: Acute Subjective - Subjective Date of service: 04/03/17 Principal diagnosis: Symptomatic anemia; Menorrhagia; Fibroid uterus Interval history: Pt states her bleeding has gotten worse despite the blood transfusions Patient reports: appetite normal Objective - Vital Signs Latest vital signs: Vital Signs Temp Pulse Pulse Resp BP Pulse Ox 04/03/17 17:26 98.0 F 62 18 147/74 0 L 04/03/17 15:02 98.4 F 86 16 135/85 0 L 04/03/17 14:57 98.4 F 86 16 135/85 04/03/17 13:00 81 04/03/17 09:58 98.6 F 89 20 138/83 0 L 04/03/17 06:00 98.6 F 90 18 138/74 100 04/03/17 05:51 84 04/03/17 02:10 98.6 F 90 18 137/80 100 04/03/17 01:40 98.6 F 88 20 144/80 99 04/03/17 01:10 98.7 F 84 18 116/63 100 04/03/17 01:00 99.1 F 92 H 18 146/78 100 04/03/17 00:40 98.7 F 90 20 116/60 100 04/03/17 00:25 98.6 F 92 H 18 111/60 100 04/03/17 00:14 98.6 F 84 20 114/62 99 04/02/17 22:00 84 18 04/02/17 19:00 99.1 F 92 H 18 146/78 100 Intake and Output 04/03/17 04/03/17 04/03/17 06:59 14:59 22:59 Intake Total 350 250 490 Output Total 300 Balance 350 250 190 Intake: IV 100 KCL 10MEQ/100ML 10 meq In 100 100 ml @ 100 mls/hr IV Q1H [facility] Rx#:[id number] Oral 240 Blood Product 250 250 250 Leukoreduced Red Blood 250 Cells Unit [id number] Leukoreduced Red Blood 250 Cells Unit [id number] Leukoreduced Red Blood 0 250 Cells Unit [id number] Output: Urine 300 Void 300 Other: Total, Intake Amount 240 Total, Output Amount 300 Voiding Method Toilet # Voids Void 1 # Bowel Movements 0 - Labs Labs: Abnormal lab results 04/02/17 04/02/17 04/03/17 Range/Units 20:25 20:25 05:28 RBC 2.59 L 2.84 L (3.65-5.03) M/mm3 Hgb 5.8 L* 6.6 L (10.1-14.3) gm/dl Hct 18.4 L* 20.6 L (30.3-42.9) % MCV 71 L 72 L (79-97) fl MCH 22 L 23 L (28-32) pg RDW 24.5 H 25.5 H (13.2-15.2) % Seg Neuts % (Manual) 78.0 H (40.0-70.0) % Lymphocytes % (Manual) 11.0 L (13.4-35.0) % Lymphocytes # (Manual) 0.9 L (1.2-5.4) K/mm3 Potassium 3.5 L (3.6-5.0) mmol/L Chloride 110.1 H (98-107) mmol/L Carbon Dioxide 21 L (22-30) mmol/L Creatinine 0.5 L (0.7-1.2) mg/dL Calcium 7.9 L (8.4-10.2) mg/dL 04/03/17 Range/Units 05:28 RBC (3.65-5.03) M/mm3 Hgb (10.1-14.3) gm/dl Hct (30.3-42.9) % MCV (79-97) fl MCH (28-32) pg RDW (13.2-15.2) % Seg Neuts % (Manual) (40.0-70.0) % Lymphocytes % (Manual) (13.4-35.0) % Lymphocytes # (Manual) (1.2-5.4) K/mm3 Potassium 3.4 L (3.6-5.0) mmol/L Chloride 110.5 H (98-107) mmol/L Carbon Dioxide 18 L (22-30) mmol/L Creatinine 0.4 L (0.7-1.2) mg/dL Calcium 7.5 L (8.4-10.2) mg/dL
[2017-04-03] MEDS ORDERED: ANCEF/STERILE WATER 2 GM/20 ML 2 GM/20 ML SYRINGE IV NR (19:00)
[2017-04-03 20:54] LABS: Hematocrit 27.1 % (30.3-42.9); Hemoglobin 8.7 gm/dl (10.1-14.3)
[2017-04-04] MEDS: TORADOL IV SCH ×3 (02:05→15:11)
[2017-04-04 07:05] LABS: Hematocrit 23.9 % (30.3-42.9)
[2017-04-04] MEDS ORDERED: SILVER NITRATE TP ONE (07:17)
--- NOTE | 2017-04-04 07:35 | Anesthesia Day of Surgery ---
Anesthesia Day of Surgery - Day of Surgery Patient Examined: Yes Patient H&P Reviewed: Yes Patient is NPO: Yes
--- NOTE | 2017-04-04 07:36 | Anesthesia Consultation ---
Anesthesia Consult and Med Hx Date of service: 04/04/17 - Airway Anesthetic Teeth Evaluation: Good ROM Head & Neck: Adequate Mental/Hyoid Distance: Adequate Mallampati Class: Class III Intubation Access Assessment: Probably Good - Pulmonary Exam CTA: Yes - Cardiac Exam Cardiac Exam: RRR - Pre-Operative Health Status ASA Pre-Surgery Classification: ASA2 Proposed Anesthetic Plan: General - Pulmonary Hx Smoking: No Hx Asthma: No - Cardiovascular System Hx Hypertension: No Hx Heart Attack/AMI: No - Central Nervous System Hx Seizures: No CVA: No - Endocrine Hx Renal Disease: No Hx Liver Disease: No Hx Insulin Dependent Diabetes: No - Hematic Hx Anemia: Yes (bleeding fr fibroid, sp 6 Units of PRBC) Hx Sickle Cell Disease: No - Other Systems Hx Obesity: Yes - Additional Comments Anesthesia Medical History Comments: Pt denies any familial anesthesia complication
[2017-04-04] MEDS ORDERED: DIPRIVAN 10 MG/ML IV ONE (07:38)
[2017-04-04] MEDS ORDERED: XYLOCAINE MPF 2% ONE (07:39)
[2017-04-04] MEDS ORDERED: SUBLIMAZE ONE (07:39)
[2017-04-04] MEDS ORDERED: NACL 0.9% 1000 ML 1,000 ML IV SCH (08:00)
[2017-04-04] MEDS ORDERED: VERSED IV NR (08:00)
[2017-04-04] MEDS ORDERED: PEPCID PO NR (08:00)
[2017-04-04] MEDS ORDERED: DECADRON ONE (08:22)
[2017-04-04] MEDS ORDERED: ZOFRAN ONE (08:23)
[2017-04-04] MEDS ORDERED: TORADOL ONE (08:29)
[2017-04-04] MEDS ORDERED: DILAUDID IV PRN (08:35)
[2017-04-04] MEDS ORDERED: NACL 0.9% IR ONE (08:40)
--- NOTE | 2017-04-04 08:42 | Operative Report ---
Operative Report Operative Report: PREOPERATIVE DIAGNOSIS: 1. Fibroid uterus 2. Menorrhagia 3. Symptomatic anemia POSTOPERATIVE DIAGNOSIS: Same OPERATIVE PROCEDURE: Dilatation and curettage. SURGEON: Jason Gutierrez MD ANESTHESIA: General Mac by Dr. Dorado ANESTHESIOLOGIST: Dr. Dorado ESTIMATED BLOOD LOSS: 50 mL's FINDINGS: An enlarged uterus with moderate amounts of blood and blood clots COMPLICATIONS: None COUNTS: Correct x3. PROCEDURE: After the patient was correctly identified as the patient, and after general anesthesia was administered, the patient was prepped and draped in the usual sterile fashion and placed in dorsal lithotomy position. First, the bladder was emptied using a straight catheter. Next, a speculum was placed in the vaginal vault and the anterior lip of the cervix was grasped using a single-tooth tenaculum. The uterus was sounded to 11 cm. The cervical os was sequentially dilated, and a serrated curette was used to scrape blood and tissue from the uterine cavity. After all the blood and tissue were removed, the procedure was considered complete. All instruments were removed from the vagina. The patient tolerated the procedure well and was transferred to the recovery room in stable condition.
[2017-04-04] MEDS ORDERED: LACTATED RINGERS 1,000 ML IV SCH (09:00)
--- NOTE | 2017-04-04 09:28 | Post Anesthesia Evaluation ---
- Post Anesthesia Evaluation Patient Participated: Yes Airway Patent: Yes Stable Respiratory Function: Yes Nausea/Vomiting: No Temp > 96.8F: Yes Pain Manageable: Yes Adequeate Hydration: Yes Anesthesia Complications: No
[2017-04-04 09:56] VITALS: BP 138/71
[2017-04-04] MEDS ORDERED: ZOFRAN IV PRN (10:00)
--- NOTE | 2017-04-04 10:51 | Discharge Summary ---
Providers - Providers Date of Admission: 04/02/17 07:56 Date of discharge: 04/04/17 Attending physician: LOVE ANDREA 04/02/17 08:22 Consult to Physician [CONS] Routine Consulting Provider: JASON GUTIERREZ Reason For Exam: Heavy menstrual bleeding Place consult to:: Dr. Gutierrez Notified:: Alexandrea RN Phone number called:: Was contact made?: Yes If yes, spoke with:: Alexandrea spoke with Dr. Gutierrez Time called:: 10:38 Primary care physician: TECHNICAL DOCUMENT WRITER Hospitalization Condition: Good Hospital course: Patient is 51 yo with history of fibroids, presented with vaginal bleeding. In Emergency Department, her hemoglobin ws 5.0. She was evaluated, orders put in for 3 units PRBC transfusion and was admitted. Imaging showed fibroid and right ovarian cyst. Patient was evaluated by Rope Tow Operator. After 3 units PRBC transfusion, her hemoglobin was only 6.6 so was transfused 2 Units PRBC more. Also she continued to have vaginal bleeding. D and C was therefore done by Dr. Jason Gutierrez. She was re-evaluated on 04/04/17, bleeding had subsided, henoglobin 8.0 so she was discharged home to follow as outpatient. Total time spent on discharge, 32 mins. Disposition: TO HOME OR SELFCARE - Discharge Diagnoses (1) Anemia due to acute blood loss Status: Acute (2) Symptomatic anemia Status: Acute (3) Fibroid uterus Status: Chronic Qualifiers: Uterine leiomyoma location: submucous Qualified Code(s): D25.0 - Submucous leiomyoma of uterus (4) Abnormal uterine bleeding (AUB) Status: Acute (5) Menorrhagia Status: Acute Qualifiers: Menorrahagia type: M (6) Right ovarian cyst Status: Acute (7) Blood transfusion during current hospitalisation Status: Acute Core Measure Documentation - Palliative Care Palliative Care/ Comfort Measures: Not Applicable - Core Measures Any of the following diagnoses?: none Exam - Physical Exam Narrative exam: Gen appearance: Not in acute distress,obese HEENT: normocephalic, atraumatic Neck: supple, no JVD Lungs: Clear to auscultation bilaterally, no crackles or wheezes Heart :S1 and S2 regular, no murmurs, rubs or gallop Abdomen: Soft, Non tender, non distended, bowel sounds present Extremities :no edema, no clubbing or cyanosis Neuro: AAO x 3, no focal neurological signs Psych:normal mood - Constitutional Vitals: Temp Pulse Resp BP Pulse Ox 97.0 F L 80 20 138/71 99 04/04/17 09:45 04/04/17 09:45 04/04/17 09:45 04/04/17 09:45 04/04/17 09:45 Plan Activity: advance as tolerated Diet: low fat, low cholesterol, low salt Additional Instructions: 1.Follow up with Dr. Monico Gutierrez in 1 week. 2.Follow up with PCP or [facility] in 1 week. Follow up with: PRIMARY CARE, [Primary Care Provider] - 3-5 Days Forms: Work/School Release Form Prescriptions: Docusate Sodium [Colace] 100 mg PO BID #60 capsule Ferrous Sulfate [Feosol 325 MG tab] 325 mg PO BID #60 tablet HYDROcodone/APAP 5-325 [Eunice 5/325] 1 each PO Q6HR PRN #20 tablet PRN Reason: Pain medroxyPROGESTERone ACETATE [Provera] 10 mg PO QDAY #10 tablet
[2017-04-04] MEDS: PROVERA PO SCH (10:58)
[2017-04-04] MEDS ORDERED: Fluarix Quad 2017-2018(36 MOS+) IM ONE (12:00)
[2017-04-04] MEDS ORDERED: NORCO 5/325 PO PRN (14:24)
== END 2017-04-04 15:41 | disposition home or self-care (01) | DRG 744 ==
LOC: ED 05:21 → 4A 07:56
PROVIDERS: ADMIT Internal Medicine; ATTEND Internal Medicine
PROC: 30233N1 Transfusion of Nonautologous Red Blood Cells into Peripheral Vein, Percutaneous Approach (ICD-10-PCS; 2017-04-02)
PROC: 0UDB7ZZ Extraction of Endometrium, Via Natural or Artificial Opening (ICD-10-PCS; principal; 2017-04-04)
DX: D25.0 Submucous leiomyoma of uterus (principal); D62 Acute posthemorrhagic anemia; N92.1 Excessive and frequent menstruation with irregular cycle; E87.6 Hypokalemia; N93.9 Abnormal uterine and vaginal bleeding, unspecified; Z87.891 Personal history of nicotine dependence; Z82.49 Family history of ischemic heart disease and other diseases of the circulatory system; Z85.89 Personal history of malignant neoplasm of other organs and systems
CPT/HCPCS: 36415; 71010; 71275; 76830; 76856; 80048; 80053; 81025; 83735; 84132; 84484; 85007; 85014; 85018; 85025; 85027; 85379; 85610; 85730; 86850; 86900; 86901; 86920; 88305; 90686; 93005; 93010; 96374; J0690; J1100; J1650; J1885; J2250; J2405; J2704; J3010; J3480; J7030; P9016; Q9967

== ENCOUNTER 2017-06-26 10:55 | Outpatient (CLI) | payer OTHER ==
[2017-06-26] MEDS ORDERED: XYLOCAINE TOPICAL 4% TP ONE (11:25)
== END 2017-06-26 10:56 | disposition home or self-care (01) ==
LOC: WOUND 10:55
PROVIDERS: ATTEND Surgery
DX: T81.89XD Other complications of procedures, not elsewhere classified, subsequent encounter (principal); Z90.710 Acquired absence of both cervix and uterus; Z87.891 Personal history of nicotine dependence; Z72.89 Other problems related to lifestyle; Y83.8 Other surgical procedures as the cause of abnormal reaction of the patient, or of later complication, without mention of misadventure at the time of the procedure
CPT/HCPCS: 99214; G0463

== ENCOUNTER 2017-07-10 08:18 | Outpatient (CLI) | payer OTHER ==
[2017-07-10] MEDS ORDERED: XYLOCAINE TOPICAL 4% TP ONE ×2 (08:42→08:52)
== END 2017-07-10 08:19 | disposition home or self-care (01) ==
LOC: WOUND 08:18
PROVIDERS: ATTEND Surgery
DX: T81.89XD Other complications of procedures, not elsewhere classified, subsequent encounter (principal); Z90.710 Acquired absence of both cervix and uterus; Z87.891 Personal history of nicotine dependence; Z72.89 Other problems related to lifestyle; Y83.8 Other surgical procedures as the cause of abnormal reaction of the patient, or of later complication, without mention of misadventure at the time of the procedure
CPT/HCPCS: 99214; G0463

== ENCOUNTER 2017-07-17 08:24 | Outpatient (CLI) | payer OTHER ==
[2017-07-17] MEDS ORDERED: XYLOCAINE TOPICAL 4% TP ONE ×2 (08:49→16:30)
== END 2017-07-17 08:25 | disposition home or self-care (01) ==
LOC: WOUND 08:24
PROVIDERS: ATTEND Surgery
DX: T81.89XD Other complications of procedures, not elsewhere classified, subsequent encounter (principal); Z87.442 Personal history of urinary calculi; Z90.710 Acquired absence of both cervix and uterus; Z87.891 Personal history of nicotine dependence; Y83.8 Other surgical procedures as the cause of abnormal reaction of the patient, or of later complication, without mention of misadventure at the time of the procedure
CPT/HCPCS: 99214; G0463

== ENCOUNTER 2017-07-24 08:30 | Outpatient (CLI) | payer OTHER ==
[2017-07-24] MEDS ORDERED: XYLOCAINE TOPICAL 4% TP ONE ×2 (08:45→16:11)
== END 2017-07-24 08:31 | disposition home or self-care (01) ==
LOC: WOUND 08:30
PROVIDERS: ATTEND Surgery
DX: T81.89XD Other complications of procedures, not elsewhere classified, subsequent encounter (principal); Z90.710 Acquired absence of both cervix and uterus; Z87.891 Personal history of nicotine dependence; Z72.89 Other problems related to lifestyle; Y83.8 Other surgical procedures as the cause of abnormal reaction of the patient, or of later complication, without mention of misadventure at the time of the procedure
CPT/HCPCS: 99214; G0463

== ENCOUNTER 2017-07-31 08:32 | Outpatient (CLI) | payer OTHER ==
[2017-07-31] MEDS ORDERED: XYLOCAINE TOPICAL 4% TP ONE ×2 (08:57)
== END 2017-07-31 08:33 | disposition home or self-care (01) ==
LOC: WOUND 08:32
PROVIDERS: ATTEND Surgery
DX: T81.89XD Other complications of procedures, not elsewhere classified, subsequent encounter (principal); Z90.710 Acquired absence of both cervix and uterus; Z87.891 Personal history of nicotine dependence; Z72.89 Other problems related to lifestyle; Y83.8 Other surgical procedures as the cause of abnormal reaction of the patient, or of later complication, without mention of misadventure at the time of the procedure
CPT/HCPCS: 99214; G0463; G0463-25

== ENCOUNTER 2017-08-07 10:15 | Outpatient (CLI) | payer OTHER ==
[2017-08-07] MEDS ORDERED: XYLOCAINE TOPICAL 4% TP ONE ×2 (11:18→16:23)
== END 2017-08-07 10:16 | disposition home or self-care (01) ==
LOC: WOUND 10:15
PROVIDERS: ATTEND Surgery
DX: T81.89XD Other complications of procedures, not elsewhere classified, subsequent encounter (principal); Z90.710 Acquired absence of both cervix and uterus; Z87.891 Personal history of nicotine dependence; Z72.89 Other problems related to lifestyle; Y83.8 Other surgical procedures as the cause of abnormal reaction of the patient, or of later complication, without mention of misadventure at the time of the procedure
CPT/HCPCS: 99214; G0463

== ENCOUNTER 2017-08-14 08:33 | Outpatient (CLI) | payer OTHER | END 2017-08-14 08:34 | disposition home or self-care (01) | LOC: WOUND 08:33 | PROVIDERS: ATTEND Surgery | DX: T81.89XD Other complications of procedures, not elsewhere classified, subsequent encounter (principal); Z90.710 Acquired absence of both cervix and uterus; Z87.891 Personal history of nicotine dependence; Z72.89 Other problems related to lifestyle; Y83.8 Other surgical procedures as the cause of abnormal reaction of the patient, or of later complication, without mention of misadventure at the time of the procedure | CPT/HCPCS: 99214; G0463 ==

== ENCOUNTER 2017-08-21 08:27 | Outpatient (CLI) | payer OTHER | END 2017-08-21 08:28 | disposition home or self-care (01) | LOC: WOUND 08:27 | PROVIDERS: ATTEND Surgery | DX: T81.89XD Other complications of procedures, not elsewhere classified, subsequent encounter (principal); Z90.710 Acquired absence of both cervix and uterus; Z87.891 Personal history of nicotine dependence; Z72.89 Other problems related to lifestyle; Y83.8 Other surgical procedures as the cause of abnormal reaction of the patient, or of later complication, without mention of misadventure at the time of the procedure | CPT/HCPCS: 99213; G0463 ==

== ENCOUNTER 2017-11-06 08:52 | Outpatient (CLI) | payer OTHER ==
--- NOTE | 2017-11-06 11:42 | XRay Report ---
XRAY LEFT HIP THREE VIEWS: 11/06/17 08:52:00 CLINICAL: Left hip pain. FINDINGS: Osteoarthritis with complete loss of the superior and superolateral joint space, superior acetabular eburnation, subchondral geodes and osteophytes. No fracture or dislocation. Less extensive arthritis in the right hip. The pelvic bones are intact. The SI joints are normal. Normal soft tissues. IMPRESSION: Severe osteoarthritis of the left hip.
== END 2017-11-06 08:53 | disposition home or self-care (01) ==
LOC: SPVIMAG 08:52
PROVIDERS: ATTEND Orthopaedic Surgery Sports Medicine
DX: M16.12 Unilateral primary osteoarthritis, left hip (principal)